=== PATIENT | female | born 1940 | race Caucasian/White ===

== ENCOUNTER → 2016-09-13 | Day surgery (SDC) | payer MEDICARE ==
[~2016-09-13] MED LIST: AMBI5TAB PO; AMIT10TA6 PO; ASPI81 PO; BUPIVACAINE HCL PF 0.5% 30 ML VIAL ONE; BUPIVACAINE HCL PF 0.75% 30 ML VIAL ONE; BUPR150T PO; BUPR150T3 PO; CHLO5CAP37 PO; DIGESTIVE ADVANTAGE PO; DIPH25 PO; FLEC100T PO; FLEC1TAB PO; LEVO.1 PO; LEVO100T5 PO; LIBRAX PO; MELA1TAB18 PO; META28.34 PO; METO50 PO; METR250 PO; MIRA25TA PO; MIRA3350 PO; NEXI20CA PO; OMEP10CA37 PO; PREM0.3T2 PO; PROPOFOL 200 MG/20 ML AMP IV ONE; RELP20TA PO; SIMV20TA PO; TRIAMCINOLONE ACETONIDE 40 MG/ML VIAL I-ARTICULR ONE; VERA120T3 PO; XARE10TA PO; aspirin PO; methylPREDNISolone ACETATE 40 MG/ML VIAL I-ARTICULR ONE
--- NOTE | 2016-09-15 17:36 | M5 ---
cc: TEODORA BOYD M.D., WILLIAM R. M.D. DATE OF CONSULTATION 09/12/2016 1940. Vital signs were taken including a pain score. Medications were checked and reconciled. Past medical history and past surgical history were updated. Allergies were updated. Any new imaging studies were reviewed. Referring physician records were reviewed. It has been three years since I saw Ms. Crain. In the past, we have performed various procedures depending on her symptoms. When I originally saw her, she was having radicular pain into the lower extremities and we performed lumbar nerve root injections of local anesthetic and steroid which helped her radicular symptoms. Later on she was having low back pain and we injected her bilateral sacroiliac joints which did relieve her low back pain. The last sacroiliac joint injection was given in 2013. The patient is currently complaining of low back pain while standing and walking. The pain is worse in the morning when she first gets out of bed. It actually improves when she moves around and takes a hot shower. When asked to point to the area of pain, the patient points to the sacral area. On examination, she is not tender in the lumbar paravertebral areas. However, palpation over the bilateral sacroiliac joints causes the patient to jump and pull way. IMPRESSION Bilateral sacroiliitis. PLAN Repeat previously effective injection bilateral sacroiliac joints. W. MD NAEEM Delatorre/ /2:38 PM /4:45 PM
--- NOTE | 2016-09-15 21:46 | M6 ---
cc: BELEN FERNANDEZ M.D. Corrected Copy:09/20/16 DATE: 09/13/2016. DATE OF : 1940 PROCEDURE PERFORMED: Fluoroscopically guided injection bilateral sacroiliac joints. DESCRIPTION OF THE PROCEDURE IN DETAIL: History and physical was completed and signed. Consent was signed. Procedure site was marked. Medications were listed and reconciled. Pain score was recorded. Allergies were noted. Time out was taken. Fluoroscopy time was recorded where applicable. Sedation was administered or directed by Dr. Fernandez. The patient was given oxygen. The patient was monitored by a registered nurse. Total procedure time was greater than 15 minutes. IV was started, blood pressure cuff, pulse oximeter and EKG were applied. The patient was placed in the prone position on a Fernando table and sedated with small amounts of propofol titrated to effect. Vital signs were monitored and remained stable throughout the procedure. The sacral area was prepped with alcohol and 10% Betadine solution and draped with sterile drapes. Fluoroscopy was used shooting from medial to lateral to clearly visualize the posterior joint line of the bilateral sacroiliac joints. Separate sterile 5-inch 22-gauge spinal needles were advanced into each joint under fluoroscopic guidance. There was negative aspiration for blood or any other type of fluid and at each location the patient was given 2 mL of 0.5% Marcaine, 20 mg of Depo-Medrol and 20 mg of Kenalog. Following the procedure, the patient was taken to the recovery room with stable vital signs neurologically intact. W. MD NAEEM Delatorre/ELIZABETH /8:52 AM /3:12 PM
== END | disposition home or self-care (01) ==
LOC: PHSDC 07:23
PROVIDERS: ATTEND Pain Medicine Interventional Pain Medicine
DX: M54.5 Low back pain (principal); M46.1 Sacroiliitis, not elsewhere classified
CPT/HCPCS: 99152; G0260; J1030; J3301; 27096

== ENCOUNTER → 2016-12-20 | Day surgery (SDC) | payer MEDICARE ==
[~2016-12-20] MED LIST changes: -AMBI5TAB PO; -ASPI81 PO; -BUPIVACAINE HCL PF 0.5% 30 ML VIAL ONE; -BUPIVACAINE HCL PF 0.75% 30 ML VIAL ONE; -BUPR150T PO; -CHLO5CAP37 PO; -DIPH25 PO; -FLEC1TAB PO; -LEVO.1 PO; +LIDOCAINE HCL 1% PF 30 ML VIAL INFIL ONE; +MAPA500T13 PO; -METO50 PO; -METR250 PO; -MIRA25TA PO; -OMEP10CA37 PO; -RELP20TA PO; +SODIUM CHLORIDE 0.9% 10 ML VIAL ONE; -TRIAMCINOLONE ACETONIDE 40 MG/ML VIAL I-ARTICULR ONE; +TRIAMCINOLONE ACETONIDE 40 MG/ML VIAL NERV BLOCK ONE; -methylPREDNISolone ACETATE 40 MG/ML VIAL I-ARTICULR ONE; +methylPREDNISolone ACETATE 80 MG/ML VIAL ONE
--- NOTE | 2016-12-20 08:24 | M6 ---
cc: Juni FERNANDEZ DATE 12/20/2016 DATE OF 1940 PROCEDURE Fluoroscopically guided L5-S1 interlaminar epidural steroid injection. PROCEDURE NOTE History and physical was completed and signed. Consent was signed. Procedure site was marked. Medications were listed and reconciled. Pain score was recorded. Allergies were noted. Time out was taken. Fluoroscopy time was recorded where applicable. Sedation was administered or directed by Dr. Fernandez. The patient was given oxygen. The patient was monitored by a registered nurse. Total procedure time was greater than 15 minutes. IV was started, blood pressure cuff, pulse oximeter and EKG were applied. The patient was placed in the prone position on a Fernando table sedated with small amounts of propofol titrated to effect. Vital signs were monitored and remained stable throughout the procedure. The lumbar area was prepped with alcohol and 10% Betadine solution and draped with sterile drapes. Fluoroscopy was used to visualize the L5-S1 interlaminar space. The skin was infiltrated with 1% Xylocaine using a 27 gauge needle. Then a 3-1/2-inch 18-gauge Loredo needle was advanced using fluoroscopic guidance and the [id number] technique into the epidural space at L5-S1 slightly to the right of the midline. There was negative aspiration for blood or any other type of fluid and the patient was given 10 mL of half percent Xylocaine, 80 mg of Depo-Medrol. Following this, the patient was taken to the recovery room with stable vital signs neurologically intact. MD NAEEM Younger/MAICO /7:57 AM /8:14 AM
== END | disposition home or self-care (01) ==
LOC: PHSDC 07:00
PROVIDERS: ATTEND Pain Medicine Interventional Pain Medicine
DX: M54.5 Low back pain (principal); M79.605 Pain in left leg
CPT/HCPCS: 62323; 99152; J1040; J3301